=== PATIENT | female | born 1985 | race African-American/Black ===

== ENCOUNTER → 2018-10-18 | Outpatient (CLI) | payer OTHER ==
--- NOTE | 2018-10-18 13:14 | RAD ---
EXAM: Obstetrics sonogram. HISTORY: Unsure dates. TECHNIQUE: Sonographic imaging of a gravid uterus was performed. COMPARISON: None. FINDINGS: There is a single intrauterine fetus in cephalic presentation with a heart rate of 135 bpm. There is normal body motion. There is a posterior placenta without evidence of placenta previa. The amniotic fluid index is normal. The cervix is closed and measures 5.5 cm in length. There is a three-vessel umbilical cord. The stomach, kidneys, bladder, spine, brain, facial profile, extremities and heart are unremarkable. The biparietal diameter is 4.71 cm, corresponding with 20 weeks and 2 days. The head circumference is 17.14 cm, corresponding with 19 weeks and 5 days. The abdominal circumference is 14.46 cm, corresponding with 19 weeks and 5 days. The femoral length is 3.52 cm, corresponding with 21 weeks and 5 days. The estimated gestational age patient combined ultrasound measurements is 20 weeks and 2 days and the estimated due date is 03/05/2019. IMPRESSION: Single intrauterine fetus with an estimated gestational age based on ultrasound measurements of 20 weeks and 2 days and heart rate of 135 bpm. Electronically signed by: Carli Liu MD (10/18/2018 1:12 PM) [id number]
== END | disposition home or self-care (01) ==
LOC: US 12:51
PROVIDERS: ATTEND Family Medicine
DX: Z34.92 Encounter for supervision of normal pregnancy, unspecified, second trimester (principal); Z3A.20 20 weeks gestation of pregnancy
CPT/HCPCS: 76805